=== PATIENT | female | born 1965 | race Caucasian/White ===

== ENCOUNTER 2017-08-09 20:55 | Emergency (ER) | payer OTHER ==
[~2017-08-09] VITALS: Ht 152.4 cm; Wt 63.5 kg
[~2017-08-09 20:55] MED LIST: AMITRIPTYLINE H25 M3; AMITRIPTYLINE H25 M4 PO; BENTYL20 MG PO; CARAFATE 1 GM TA1 G1 PO; HYOSCYAMINE0.375 M2 PO; MAGNESIUM CITR296 ML PO; MEDROLDOSEPACK PO; NORCO 5-325 TA1 EACH PO; PROTONIX40 MG PO; ZOFRAN4 MG PO
[2017-08-09 21:35] LABS: INFLUENZA A ANTIGEN None Detected (None Detect); INFLUENZA B ANTIGEN None Detected (None Detect)
[2017-08-09 21:35] LABS: ABSOLUTE BASOPHILS 0.1 thou/uL (0.0-0.2); ABSOLUTE EOSINOPHILS 0.1 thou/uL (0.0-0.7); ABSOLUTE LYMPHOCYTES 2.3 thou/uL (0.8-5.3); ABSOLUTE MONOCYTES 1.7 thou/uL (0.0-1.2); ABSOLUTE NEUTROPHILS 10.1 thou/uL (1.6-8.1); BASOPHILS 0.5 %; EOSINOPHILS 0.4 %; HEMATOCRIT 33.9 % (37.0-47.0); HEMOGLOBIN 11.3 gm/dL (12.0-15.0); LYMPHOCYTES 16.4 %; MCH 27.6 pg (26.0-34.0); MCHC 33.4 g/dL (28.0-37.0); MCV 82.8 fL (80.0-100.0); MONOCYTES 12.2 %; MPV 7.1 fl. (7.2-11.1); NUCLEATED RBCS 0 /100WBC; PLATELET COUNT* 389 thou/uL (150-400); POLYS 70.5 %; RDW-CV 14.7 % (10.5-14.5); WBC 14.4 thou/uL (4.0-11.0)
[2017-08-09 21:43] LABS: CALCIUM 8.6 mg/dL (8.5-10.1); CREATININE 0.8 mg/dL (0.6-1.3); POTASSIUM 3.7 mmol/L (3.5-5.1)
[2017-08-09 21:48] LABS: TOTAL BILIRUBIN 0.2 mg/dL (<0.1-1.0); TOTAL PROTEIN 7.1 g/dL (6.4-8.2)
[2017-08-09] MEDS ORDERED: PREDNISONE 20 M20 M1 PO (22:36)
[2017-08-09] MEDS ORDERED: ZPAK PO (22:36)
[2017-08-09 22:54] VITALS: BP 98/56
--- NOTE | 2017-08-10 10:32 | EKG ---
[place] [address] ELECTROCARDIOGRAM REPORT Name: DALTON RENE ABIGAIL [facility] [id number] Admission: 08/09/17 Attend Phys: Discharge: 08/09/17 Date of : 67 Report #: [id number] THIS REPORT FOR: //name// [facility] ED Test Date: 2017-08-09 Test Time: 21:20:52 Pat Name: DALTON RENE Department: Room: Gender: F [employer] Att[employer]: HAMILTON : 1965 Requested By: Sheila Bedoya Order Number: [id number] MD: Wu Garcia Measurements Intervals [place] Rate: 84 P: 75 [place]: 142 QRS: 58 QRSD: 108 T: 81 QT: 367 QTc: 434 Interpretive Statements Sinus rhythm Borderline low voltage, extremity leads Nonspecific T abnormalities, lateral leads No previous ECG available for comparison Electronically Signed On 08-10-2017 10:31:59 [employer] by Wu Garcia [email or web address] <ELECTRONICALLY SIGNED> By: Wu Garcia MD, [facility] 08/10/17 1031 19 19 Wu Garcia MD, FACC /EPI
== END 2017-08-09 22:55 | disposition home or self-care (01) ==
LOC: M.ERS 20:55
PROVIDERS: Nurse Practitioner Family
DX: J18.9 Pneumonia, unspecified organism (principal); F17.210 Nicotine dependence, cigarettes, uncomplicated; Z88.1 Allergy status to other antibiotic agents